=== PATIENT | female | born 1990 | race Two or more races ===

== ENCOUNTER 2025-05-31 20:20 | Emergency (ER) | payer OTHER ==
[~2025-05-31] VITALS: Ht 162.6 cm; Wt 72.6 kg
[2025-05-31] MEDS ORDERED: ORPHENADRINE CITRATE 30 MG/ML AMPUL ONE (22:01)
[2025-05-31] MEDS ORDERED: ORPHENADRINE CITRATE 30 MG/ML AMPUL IM STA (22:02)
[2025-05-31] MEDS ORDERED: ONDANSETRON HCL 2 MG/ML VIAL ONE (22:11)
[2025-05-31] MEDS ORDERED: ONDANSETRON HCL 2 MG/ML VIAL IV STA (22:13)
[2025-05-31 23:19] LABS: BASO % 0.2 % (0.1-1.2); EOS # 0.00 (0.04-0.54); EOS % 0.0 % (0.7-7.0); LYMPH # 1.48 (1.18-3.74); LYMPH % 18.0 % (19.3-53.1); MEAN PLATELET VOLUME 10.60 fl (9.4-12.4); MONO # 0.22 (0.24-0.82); MONO % 2.7 % (4.7-12.5); NEUT # 6.46 (1.56-6.13); NEUT % 78.9 % (34.0-71.1); RED CELL DISTRIBUTION WIDTH 11.3 % (11.6-14.4)
[2025-05-31 23:34] LABS: INR 1.08
[2025-05-31 23:38] LABS: ALT/SGPT 18.0 U/L (12-78); AST/SGOT 14.0 U/L (15-37); BILIRUBIN TOTAL 0.95 mg/dL (0.3-1.2); BUN CREA RATIO 20.0 (7.0-25.0); CREATININE SERUM 0.64 mg/dL (0.55-1.02); GFR 105.6; GLOBULINA 3.8 G/DL (2.4-3.5); GLUCOSE FASTING 112.0 mg/dL (65-100); OSMOLALITY SERUM 280.0 MOSM/KG (275-295)
[2025-06-01] MEDS ORDERED: SODIUM CHLORIDE 0.45 % 1,000 ML IV SCH (03:30)
== END 2025-06-01 06:48 | disposition designated cancer center or children's hospital (05) ==
LOC: ER 20:20
PROVIDERS: General Practice
DX: I60.8 Other nontraumatic subarachnoid hemorrhage (principal); R51.9 Headache, unspecified; Z88.8 Allergy status to other drugs, medicaments and biological substances